=== PATIENT | female | born 1985 | race Caucasian/White ===

== ENCOUNTER 2024-03-01 17:07 | Emergency (ER) | payer OTHER ==
[2024-03-01] MEDS: ONDANSETRON 4MG INJ IV ONE (17:37)
[2024-03-01] MEDS: MECLIZINE HCL 25 MG TABLET PO ONE (17:37)
[2024-03-01 17:49] LABS: BASOPHILS # (AUTO) 0.01 K/uL (0.00-0.20); BASOPHILS % (AUTO) 0.1 % (0.0-5.0); EOSINOPHILS # (AUTO) 0.07 K/uL (0.00-0.70); EOSINOPHILS % (AUTO) 0.9 % (0.0-8.0); HEMATOCRIT 35.7 % (36-48); IMMATURE GRANULOCYTE ABSOLUTE 0.02 K/uL (0-1); LYMPHOCYTES # (AUTO) 1.6 K/uL (1.0-4.8); LYMPHOCYTES % (AUTO) 20.2 % (21.0-51.0); MEAN CORPUSCULAR HEMOGLOBIN 24.9 pg (27.0-33.0); MEAN CORPUSCULAR HGB CONC 33.1 g/dL (32.0-36.0); MEAN CORPUSCULAR VOLUME 75.5 fL (79-99); MONOCYTES # (AUTO) 0.6 K/uL (0.1-1.0); MONOCYTES % (AUTO) 7.6 % (3.0-13.0); NEUTROPHILS # (AUTO) 5.4 K/uL (1.8-7.7); NEUTROPHILS % (AUTO) 70.9 % (40.0-77.0); PLATELET COUNT (AUTO) 369 K/uL (130-400); RED BLOOD CELL COUNT(AUTO) 4.73 MIL/uL (4.00-5.50); RED CELL DISTRIBUTION WIDTH 13.8 % (11.0-15.5); WHITE BLOOD COUNT (AUTO) 7.7 K/uL (4.8-10.8)
[2024-03-01 18:05] LABS: CREATININE 0.5 mg/dL (0.5-1.0); POTASSIUM 4.6 mmol/L (3.5-5.1)
[2024-03-01 18:10] LABS: ALBUMIN 3.2 g/dL (3.5-5.0); BILIRUBIN,TOTAL 0.3 mg/dL (0.2-1.0); TOTAL PROTEIN, SERUM 7.8 g/dL (6.0-8.3)
[2024-03-01] MEDS ORDERED: ONDA4TAB10 PO (18:26)
[2024-03-01] MEDS ORDERED: MECL-302 PO (18:26)
[2024-03-01 18:33] VITALS: BP 135/84; PULSE 78; RESP 18; O2SAT 98
== END 2024-03-01 18:35 | disposition home or self-care (01) ==
LOC: EDH 17:07
DX: R42 Dizziness and giddiness (principal); J45.909 Unspecified asthma, uncomplicated; E03.9 Hypothyroidism, unspecified
CPT/HCPCS: 99284; 96374; 84484; 80053; 85025; 36415; 93005; J2405

== ENCOUNTER 2024-03-08 00:35 | Emergency (ER) | payer OTHER ==
[~2024-03-08] VITALS: Ht 160 cm; Wt 81.2 kg
[~2024-03-08 00:35] MED LIST: MECL-302 PO; ONDA4TAB10 PO
[2024-03-08 01:16] LABS: BASOPHILS # (AUTO) 0.03 K/uL (0.00-0.20); BASOPHILS % (AUTO) 0.3 % (0.0-5.0); EOSINOPHILS # (AUTO) 0.25 K/uL (0.00-0.70); EOSINOPHILS % (AUTO) 2.3 % (0.0-8.0); HEMATOCRIT 33.5 % (36-48); IMMATURE GRANULOCYTE ABSOLUTE 0.04 K/uL (0-1); LYMPHOCYTES # (AUTO) 3.2 K/uL (1.0-4.8); LYMPHOCYTES % (AUTO) 29.5 % (21.0-51.0); MEAN CORPUSCULAR HEMOGLOBIN 25.3 pg (27.0-33.0); MEAN CORPUSCULAR HGB CONC 33.4 g/dL (32.0-36.0); MEAN CORPUSCULAR VOLUME 75.6 fL (79-99); MONOCYTES # (AUTO) 0.9 K/uL (0.1-1.0); MONOCYTES % (AUTO) 8.4 % (3.0-13.0); NEUTROPHILS # (AUTO) 6.3 K/uL (1.8-7.7); NEUTROPHILS % (AUTO) 59.1 % (40.0-77.0); PLATELET COUNT (AUTO) 400 K/uL (130-400); RED BLOOD CELL COUNT(AUTO) 4.43 MIL/uL (4.00-5.50); RED CELL DISTRIBUTION WIDTH 14.3 % (11.0-15.5); WHITE BLOOD COUNT (AUTO) 10.7 K/uL (4.8-10.8)
[2024-03-08 01:21] LABS: APPEARANCE,URINE CLEAR (CLEAR); BILIRUBIN,URINE NEGATIVE (NEGATIVE); COLOR,URINE LIGHT-YELLOW (YELLOW); GLUCOSE, URINE (UA) NEGATIVE (NEGATIVE); KETONES,URINE NEGATIVE (NEGATIVE); LEUKOCYTE ESTERASE ,URINE NEGATIVE Leu/uL (NEGATIVE); NITRATE,URINE NEGATIVE (NEGATIVE); OCCULT BLOOD,URINE NEGATIVE (NEGATIVE); PH,URINE 6.5 (5.0-8.0); PROTEIN,URINE NEGATIVE (NEGATIVE); UROBILINOGEN,URINE 0.2 mg/dL (0.2-1.0)
[2024-03-08 01:25] LABS: ADD UA MICROSCOPIC NO
[2024-03-08 01:25] LABS: CREATININE 0.6 mg/dL (0.5-1.0); POTASSIUM 3.6 mmol/L (3.5-5.1)
[2024-03-08 01:30] LABS: ALBUMIN 3.2 g/dL (3.5-5.0); BILIRUBIN,TOTAL 0.2 mg/dL (0.2-1.0); TOTAL PROTEIN, SERUM 7.6 g/dL (6.0-8.3)
[2024-03-08] MEDS: KETOROLAC 60 MG VIAL (30MG/ML) IM ONE (03:11)
[2024-03-08] MEDS: DICYCLOMINE 20MG (10MG/ML) AMP IM ONE (03:11)
[2024-03-08] MEDS ORDERED: IBUP-1493 PO (04:34)
[2024-03-08] MEDS ORDERED: DICY20TA2 PO (04:34)
[2024-03-08 04:36] VITALS: BP 113/72; PULSE 84; RESP 16; O2SAT 99
== END 2024-03-08 04:52 | disposition home or self-care (01) ==
LOC: EDH 00:35
DX: K80.20 Calculus of gallbladder without cholecystitis without obstruction (principal); K80.50 Calculus of bile duct without cholangitis or cholecystitis without obstruction; E03.9 Hypothyroidism, unspecified
CPT/HCPCS: 99284; 80053; 83690; 85025; 81003; 81025; 36415; 96372 ×2; J1885; J0500

== ENCOUNTER 2024-04-26 08:08 | Day surgery (SDC) | payer OTHER ==
[2024-04-24 11:04] VITALS: BP 135/56; PULSE 92; RESP 18
[2024-04-24 11:14] LABS: BASOPHILS # (AUTO) 0.03 K/uL (0.00-0.20); BASOPHILS % (AUTO) 0.4 % (0.0-5.0); EOSINOPHILS # (AUTO) 0.26 K/uL (0.00-0.70); EOSINOPHILS % (AUTO) 3.4 % (0.0-8.0); HEMATOCRIT 35.9 % (36-48); IMMATURE GRANULOCYTE ABSOLUTE 0.03 K/uL (0-1); LYMPHOCYTES # (AUTO) 1.8 K/uL (1.0-4.8); LYMPHOCYTES % (AUTO) 23.5 % (21.0-51.0); MEAN CORPUSCULAR HEMOGLOBIN 24.9 pg (27.0-33.0); MEAN CORPUSCULAR HGB CONC 32.9 g/dL (32.0-36.0); MEAN CORPUSCULAR VOLUME 75.9 fL (79-99); MONOCYTES # (AUTO) 0.5 K/uL (0.1-1.0); MONOCYTES % (AUTO) 6.9 % (3.0-13.0); NEUTROPHILS % (AUTO) 65.4 % (40.0-77.0); PLATELET COUNT (AUTO) 333 K/uL (130-400); RED BLOOD CELL COUNT(AUTO) 4.73 MIL/uL (4.00-5.50); WHITE BLOOD COUNT (AUTO) 7.7 K/uL (4.8-10.8)
[2024-04-24 11:24] LABS: CREATININE 0.7 mg/dL (0.5-1.0); POTASSIUM 3.8 mmol/L (3.5-5.1)
[2024-04-24 11:45] LABS: ALBUMIN 3.2 g/dL (3.5-5.0); BILIRUBIN,TOTAL 0.3 mg/dL (0.2-1.0); CREATININE 0.7 mg/dL (0.5-1.0); POTASSIUM 3.8 mmol/L (3.5-5.1); TOTAL PROTEIN, SERUM 7.7 g/dL (6.0-8.3)
[~2024-04-26] VITALS: Ht 160 cm; Wt 80.6 kg
[2024-04-26] VITALS (19 sets, daily range): BP systolic 126–160; BP diastolic 55–90; PULSE 85–126; RESP 14–20
[~2024-04-26 08:08] MED LIST changes: +ALBUTEROL IH; +CETI-89 PO; +DICY20TA2 PO; +ESOM20CA31 PO; +IBUP-2076 PO; -MECL-302 PO; +METH-387 PO; -ONDA4TAB10 PO
[2024-04-26] MEDS ORDERED: PHENYLEPHRINE HCL 10 MG/ML 1ML VIAL IV ONE (08:25)
[2024-04-26] MEDS ORDERED: LIDOCAINE PF 100MG/5ML (2%) SYRINGE 5ML ONE (08:29)
[2024-04-26] MEDS ORDERED: GLYCOPYRROLATE 0.2 MG/ML 5 ML VIAL ONE (08:29)
[2024-04-26] MEDS ORDERED: ONDANSETRON 4MG INJ ONE ×2 (08:29→10:59)
[2024-04-26] MEDS ORDERED: PROPOFOL 10 MG/ML 20ML VIAL IV ONE ×2 (08:29→09:24)
[2024-04-26] MEDS ORDERED: ROCURONIUM BROMIDE 10MG/1ML 5ML VL ONE (08:29)
[2024-04-26] MEDS ORDERED: FENTANYL CITRATE PF 50 MCG/1 ML 2ML VIAL ONE (08:29)
[2024-04-26] MEDS ORDERED: MIDAZOLAM HCL 1 MG/ML 2ML VIAL ONE (08:32)
[2024-04-26] MEDS ORDERED: FAMOTIDINE 20MG VIAL IV ONE (08:44)
[2024-04-26] MEDS ORDERED: HYDROMORPHONE 1 MG INJ ONE (08:44)
[2024-04-26] MEDS: CEFAZOLIN SODIUM 2 GM VIAL ONE (08:58)
[2024-04-26] MEDS: LACTATED RINGERS 1000ML 1,000 ML IV ONE (08:59)
[2024-04-26] MEDS ORDERED: DiphenhydrAMINE HCL 50 MG/ML VIAL ONE (09:42)
[2024-04-26] MEDS: BUPIVACAINE/PF 0.5% 30ML VIAL ONE (09:50)
[2024-04-26] MEDS ORDERED: IOHEXOL-350 50ML VIAL IV ONE (10:23)
[2024-04-26] MEDS: MEPERIDINE-PF 25 MG/ML SYG ONE ×2 (11:34→11:36)
[2024-04-26] MEDS: MIDAZOLAM HCL 1 MG/ML 2ML VIAL ONE (11:36)
[2024-04-26] MEDS: METOCLOPRAMIDE 10 MG/2 ML VIAL ONE (11:37)
[2024-04-26] MEDS: ACETAMINOPHEN 1,000 MG/100 ML VIAL IV ONE (11:49)
== END 2024-04-26 13:00 | disposition home or self-care (01) ==
LOC: DAH 08:08
PROVIDERS: ATTEND Surgery
DX: K80.12 Calculus of gallbladder with acute and chronic cholecystitis without obstruction (principal); J45.909 Unspecified asthma, uncomplicated; E03.9 Hypothyroidism, unspecified; K21.9 Gastro-esophageal reflux disease without esophagitis; K31.84 Gastroparesis; K44.9 Diaphragmatic hernia without obstruction or gangrene; E66.9 Obesity, unspecified; Z68.31 Body mass index [BMI] 31.0-31.9, adult; Z79.1 Long term (current) use of non-steroidal anti-inflammatories (NSAID); Z72.89 Other problems related to lifestyle; Z79.51 Long term (current) use of inhaled steroids; Z87.891 Personal history of nicotine dependence
CPT/HCPCS: 80053; 84703; 85025; 86850; 86900; 86901; 36415; 93005; 47563; 88304; 74300; A6260; A4663; J7030; A4215 ×2; C1758; J7120; J1200; J3490 ×3; J3010; J1170; J2001; J2250 ×2; J2704 ×2; J2405 ×2; J0665; J2175 ×2; J2765; J2371; Q9967; J0690; A4649 ×3; A4223; A4213; A4222; A4221; A4600; 80048; G0168